=== PATIENT | male | born 1955 | race Caucasian/White ===

== ENCOUNTER 2024-01-16 07:41 | Outpatient (CLI) | payer MEDICARE, SELFPAY ==
--- NOTE | ~2024-01-16 | US_ITS ---
Abdominal Sonogram: Real-time sonographic imaging of the abdomen was performed. Clinical History: Right upper quadrant pain Findings: The liver appears normal with no evidence of mass lesion or bile duct dilatation. Main por dana vein demonstrates normal direction of flow. The spleen is normal in size without evidence of foca l lesion. The gallbladder is absent, compatible prior cholecystectomy. The common bile duct measures 3 mm. The visualized pancreas, aorta, and IVC are unremarkable. The right kidney measures 10.0 cm in length and the left kidney measures 10.9 cm. There is no hydronephrosis or renal calculus. Impression: No acute abnormality. Status post cholecystectomy. Reviewed, dictated and finalized at location . Impression: No acute abnormality. Status post cholecystectomy.
== END 2024-01-16 07:42 | disposition home or self-care (01) ==
LOC: MICIMG 07:43
PROVIDERS: PCP Family Medicine; Visit Provider Nurse Practitioner Family
DX: R10.11 Right upper quadrant pain (principal); Z87.19 Personal history of other diseases of the digestive system; Z90.49 Acquired absence of other specified parts of digestive tract
CPT/HCPCS: 76700

== ENCOUNTER 2024-02-15 00:48 | Day surgery (SDC) | payer MEDICARE, SELFPAY ==
[2024-01-30 14:05] VITALS: BMI 26.3
[2024-02-15 06:19] VITALS: BP 102/65; PULSE 61; RESP 16; TEMP 36.3; O2SAT 100; BMI 26.5
[2024-02-15] MEDS: LACTATED RINGERS 1,000 ML 150 ML IV CONT (06:31)
--- NOTE | 2024-02-15 07:25 | WPDANESEPPF ---
Anes - Initial Pre Proc Eval Procedure: Operation Date: 02/15/24 07:30 Proposed Procedures p Esophagogastroduodenoscopy - Esteban Biggs MD Date/Time: 02/15/24 07:25 Surgeon: Esteban Biggs MD Pre Op Diagnosis: rt upper quad pain Patient Data Age: 68 Gender: M Height: 1.88 m Weight: 93.8 kg Last Vital Signs Temp 97.3 F L 02/15/24 06:19 Pulse 61 02/15/24 06:19 Resp 16 02/15/24 06:19 BP 102/65 02/15/24 06:19 Pulse Ox 100 02/15/24 06:19 O2 Del Method Room Air 02/15/24 06:19 Allergies Allergy/AdvReac Type Severity Reaction Status Date / Time hydrocodone Allergy Unknown Unknown Verified 02/15/24 06:18 Contrast Media Allergy Unknown Unknown Uncoded 02/15/24 06:18 IV STEROIDS AdvReac Intermediate nausea Uncoded 02/15/24 06:18 Home Medications Medication Instructions Recorded Confirmed Type lisinopril 20 1 tablet PO DAILY #90 tabs 12/10/23 02/15/24 Rx mg-hydrochlorothiazide 25 mg tablet omeprazole 20 mg capsule,delayed 20 mg PO DAILY 1 month #30 caps 01/23/24 02/15/24 Rx release aspirin 81 mg tablet 81 mg PO DAILY 01/30/24 02/15/24 History Patient hx anesthesia problems: none Family hx anesthesia problems: none Results Review: All pre-operative results and documents have been reviewed as part of the pre-operative evaluation. [facility] Past Medical History Medical History BMI 31.0-31.9,adult Family History Family History Father No problems noted. Mother No problems noted. Sibling No problems noted. Social History Social History Smoking status: Former smoker Tobacco type: cigarettes Second hand tobacco smoke exposure: No Alcohol intake: current Substance use: never Substance use type: does not use Do You Feel Safe in your Home?: Yes Lack of Transportation: No Lack of Food: Never True Current Housing: I Have Housing Concerned About Future Housing: No Difficulty Paying Gas/Electric Bills: No Difficulty Paying for Meds: No Currently Unemployed: No Education: Associate Degree Difficulty w/ Childcare or Family Care: No Living arrangements: with family Occupation/Education: retired Gender identity (if verbalized by the patient): Male Spiritual care concerns: No Anes - Eval Final PreProcedure Day of Procedure 02/15/24 07:25 Patient weight: normal Heart: regular rate and rhythm Lungs: clear to auscultation Airway: Mallampati scale class II Neurological: alert and oriented Last oral intake: >/= 8 hours ASA classification: II Emergent: no Anesthetic plan: proceed Anesthesia type and monitoring: general GIVS and standard monitoring Results Review: All pre-operative results and documents have been reviewed as part of the pre-operative evaluation. Informed Consent: The patient's anesthetic plan and its attendant risks and benefits were discussed with the patient/family/POA. Questions were solicited and answers provided to the satisfaction of the patient/family/POA.
--- NOTE | 2024-02-15 07:29 | PM.IMHP ---
H&P: HPI History of Present Illness Date/Time: 02/15/24 07:29 Chief Complaint: GERD Narrative: the patient started 1 month ago to experience epigastric pain episodes sometimes associated with heartburn. He has been relieved with Prilosec which he takes daily. There is no history of dysphagia. There is no history of gastrointestinal cancers in his family. Review of Systems Review of Systems: All systems reviewed & are unremarkable except as noted in HPI and below PMFSH Past Medical History Medical History BMI 31.0-31.9,adult Family History Family History Father No problems noted. Mother No problems noted. Sibling No problems noted. Social History Social History Smoking status: Former smoker Tobacco type: cigarettes Second hand tobacco smoke exposure: No Alcohol intake: current Substance use: never Substance use type: does not use Do You Feel Safe in your Home?: Yes Lack of Transportation: No Lack of Food: Never True Current Housing: I Have Housing Concerned About Future Housing: No Difficulty Paying Gas/Electric Bills: No Difficulty Paying for Meds: No Currently Unemployed: No Education: Associate Degree Difficulty w/ Childcare or Family Care: No Living arrangements: with family Occupation/Education: retired Gender identity (if verbalized by the patient): Male Spiritual care concerns: No Meds Home Medications and Allergies Home Medications Medication Instructions Recorded Confirmed Type lisinopril 20 1 tablet PO DAILY #90 tabs 12/10/23 02/15/24 Rx mg-hydrochlorothiazide 25 mg tablet omeprazole 20 mg capsule,delayed 20 mg PO DAILY 1 month #30 caps 01/23/24 02/15/24 Rx release aspirin 81 mg tablet 81 mg PO DAILY 01/30/24 02/15/24 History Allergies Allergy/AdvReac Type Severity Reaction Status Date / Time hydrocodone Allergy Unknown Unknown Verified 02/15/24 06:18 Contrast Media Allergy Unknown Unknown Uncoded 02/15/24 06:18 IV STEROIDS AdvReac Intermediate nausea Uncoded 02/15/24 06:18 Vital Signs Vital Signs - 24 hr 02/15/24 06:19 Temperature 97.3 F L Pulse Rate 61 Respiratory Rate 16 Blood Pressure 102/65 Pulse Oximetry 100 Oxygen Delivery Room Air Exam Const: General: cooperative and healthy appearing Resp: Effort & Inspection: normal respiratory effort and able to speak in complete sentences Auscultation: clear to auscultation bilaterally Cardio: Rate: regular rate Rhythm: regular rhythm GI: Inspection: normal to inspection GI Palp: No No hepatosplenomegaly present Auscultation: normal bowel sounds Rectal Exam: deferred Skin: General skin exam: normal color Psych: Appearance: grossly normal Mental Status: mental status grossly normal Assessment and Plan Assessment and plan (1) GERD (gastroesophageal reflux disease): Code(s): K21.9 - Gastro-esophageal reflux disease without esophagitis Status: Acute Assessment and Plan: The patient is deemed a good candidate for the procedure. Consent signed. Will proceed.
[2024-02-15] MEDS: SIMETHICONE ORAL SUSPENSION 20 MG/0.3 ML 30 ML BOTTLE 0.6 ML IRRIGATION (07:35)
[2024-02-15 07:41] VITALS: BP 96/58; PULSE 60; RESP 18; O2SAT 96
[2024-02-15 07:51] VITALS: BP 105/66; PULSE 47; RESP 18; O2SAT 96
[2024-02-15 08:01] VITALS: BP 104/67; PULSE 53; RESP 16; O2SAT 99
== END 2024-02-15 08:18 | disposition home or self-care (01) ==
PROVIDERS: PCP Family Medicine; Referring Provider Nurse Practitioner Family; Visit Provider Internal Medicine Gastroenterology
PROC: 0DJ08ZZ Inspection of Upper Intestinal Tract, Via Natural or Artificial Opening Endoscopic (ICD-10-PCS; CPT 43235; principal; 2024-02-15 07:30)
DX: K29.30 Chronic superficial gastritis without bleeding (principal); K21.9 Gastro-esophageal reflux disease without esophagitis; Z87.891 Personal history of nicotine dependence
CPT/HCPCS: 43239; 88305; J2704; J7120